=== PATIENT | male | born 1945 | race Caucasian/White ===

== ENCOUNTER 2017-09-22 12:55 | Inpatient (IN) | payer OTHER, MEDICAID ==
[2017-09-22] MEDS: ACETAMINOPHEN 325 MG TAB PO (15:48)
[2017-09-22] MEDS: SOD CHLORIDE 0.9% 1,000 ML IV (17:59)
[2017-09-22] MEDS: morphine 4 MG/ML VIAL IV (18:03)
[2017-09-22 18:39] LABS: ADD MAN DIFF? NO
[2017-09-22 18:42] LABS: BASOPHILS % 0.4 % (0.0-2.0); EOSINOPHILS % 0.4 % (0.0-7.0); HEMATOCRIT 38.7 % (42.0-52.0); HEMOGLOBIN 13.1 g/dl (14.0-18.0); LYMPHOCYTES % 11.2 % (15.0-51.0); MEAN CORPUSCULAR HEMOGLOBIN 31.5 pg (29.0-33.0); MEAN CORPUSCULAR HGB CONC 33.9 g/dl (32.0-37.0); MEAN PLATELET VOLUME 11.4 fl (7.4-10.4); MONOCYTE # 0.9 10^3/ul (0.3-0.9); MONOCYTES % 10.8 % (0.0-11.0); NEUTROPHIL # 6.5 10^3/ul (1.6-7.5); PLATELET COUNT 155 10^3/UL (140-415); RED BLOOD COUNT 4.16 10^6/ul (4.70-6.10); RED CELL DISTRIBUTION WIDTH 13.9 % (11.5-14.5)
[2017-09-22 18:42] LABS: WHITE BLOOD COUNT 8.5 10^3/ul (4.8-10.8)
[2017-09-22 19:07] LABS: INR 1.03; PROTIME 13.6 Sec (11.9-14.9); PT RATIO 1.1
[2017-09-22 19:08] LABS: PARTIAL THROMBOPLASTIN TIME 35.2 Sec (25.0-35.0)
[2017-09-22 19:14] LABS: ANION GAP 17 (8-16); BLOOD UREA NITROGEN 21 mg/dl (7-20); CALCIUM 9.3 mg/dl (8.4-10.2); CARBON DIOXIDE 21 mmol/L (21-31); CHLORIDE 106 mmol/L (97-110); CREATININE 1.02 mg/dl (0.61-1.24); GLUCOSE 99 mg/dl (70-220); POTASSIUM 4.1 mmol/L (3.5-5.1); SODIUM 140 mmol/L (135-144)
[2017-09-22 19:37] LABS: ADD UMIC YES; UR ASCORBIC ACID NEGATIVE (NEGATIVE); UR BILIRUBIN (Dip) NEGATIVE (NEGATIVE); UR BLOOD (Dip) 1+ mg/dL (NEGATIVE); UR CLARITY CLEAR (CLEAR); UR COLOR YELLOW (YELLOW); UR GLUCOSE (Dip) NEGATIVE (NEGATIVE); UR KETONES (Dip) TRACE mg/dL (NEGATIVE); UR LEUKOCYTE ESTERASE (Dip) NEGATIVE Leu/ul (NEGATIVE); UR NITRITE (Dip) NEGATIVE (NEGATIVE); UR RBC 3 /HPF (0-5); UR SPECIFIC GRAVITY (Dip) 1.018 (1.003-1.030); UR TOTAL PROTEIN (Dip) NEGATIVE (NEGATIVE); UR UROBILINOGEN (Dip) NEGATIVE (NEGATIVE); UR WBC 1 /HPF (0-5)
[2017-09-22] MEDS ORDERED: ACETAMINOPHEN 325 MG TAB PO (20:30)
[2017-09-22] MEDS ORDERED: NACL 0.9% 3 ML SYG IV (20:30)
[2017-09-22] MEDS ORDERED: ONDANSETRON 4 MG INJ IV (20:30)
[2017-09-22] MEDS ORDERED: BISACODYL (EC) 5 MG TAB PO (20:30)
[2017-09-22] MEDS ORDERED: DOCUSATE SODIUM 100 MG CAP PO (20:30)
[2017-09-22] MEDS ORDERED: HYDROCODONE/APAP (5/325) TAB PO (20:30)
[2017-09-22] MEDS: clonAZEPAM 0.5 MG TAB PO (21:24)
[2017-09-22] MEDS: LISINOPRIL 20 MG TAB PO (21:25)
[2017-09-22] MEDS: morphine 2 MG INJ IV (21:25)
[2017-09-23] MEDS: SOD CHLORIDE 0.9% 1,000 ML IV ×3 (00:06→18:55)
[2017-09-23] MEDS: HYDROCODONE/APAP (10/325) TAB PO ×2 (02:00→22:01)
[2017-09-23] MEDS: ZOLPIDEM 5 MG TAB PO ×2 (02:00→22:01)
[2017-09-23 07:15] LABS: ADD MAN DIFF? NO
[2017-09-23 07:26] LABS: BASOPHILS % 0.4 % (0.0-2.0); EOSINOPHILS % 0.5 % (0.0-7.0); HEMATOCRIT 36.2 % (42.0-52.0); HEMOGLOBIN 12.5 g/dl (14.0-18.0); LYMPHOCYTES # 1.3 10^3/ul (0.8-2.9); LYMPHOCYTES % 17.5 % (15.0-51.0); MEAN CORPUSCULAR HEMOGLOBIN 31.3 pg (29.0-33.0); MEAN CORPUSCULAR HGB CONC 34.5 g/dl (32.0-37.0); MEAN CORPUSCULAR VOLUME 90.5 fl (82.0-101.0); MEAN PLATELET VOLUME 11.7 fl (7.4-10.4); MONOCYTE # 1.2 10^3/ul (0.3-0.9); MONOCYTES % 16.7 % (0.0-11.0); NEUTROPHIL # 4.7 10^3/ul (1.6-7.5); NEUTROPHILS % 64.6 % (39.0-77.0); PLATELET COUNT 165 10^3/UL (140-415); RED CELL DISTRIBUTION WIDTH 13.2 % (11.5-14.5)
[2017-09-23 07:26] LABS: WHITE BLOOD COUNT 7.3 10^3/ul (4.8-10.8)
[2017-09-23 07:39] LABS: HEMOGLOBIN A1C 5.1 % (0-5.9)
[2017-09-23 07:47] LABS: ALANINE AMINOTRANSFERASE 17 IU/L (13-69); ALBUMIN 3.8 g/dl (3.3-4.9); ALBUMIN/GLOBULIN RATIO 1.15; ALKALINE PHOSPHATASE 68 IU/L (42-121); ANION GAP 19 (8-16); ASPARTATE AMINO TRANSFERASE 16 IU/L (15-46); BILIRUBIN,INDIRECT 0.5 mg/dl (0-1.1); BILIRUBIN,TOTAL 0.5 mg/dl (0.2-1.3); BLOOD UREA NITROGEN 18 mg/dl (7-20); CALCIUM 8.9 mg/dl (8.4-10.2); CARBON DIOXIDE 19 mmol/L (21-31); CHLORIDE 109 mmol/L (97-110); CHOL/HDL RATIO 2.7 RATIO; CHOLESTEROL 138 mg/dl (100-200); CREATININE 0.98 mg/dl (0.61-1.24); GLUCOSE 109 mg/dl (70-220); HDL CHOLESTEROL 51 mg/dl (31-75); LDL CHOLESTEROL,CALCULATED 75 mg/dl; MAGNESIUM 1.5 mg/dl (1.7-2.5); POTASSIUM 3.7 mmol/L (3.5-5.1); SODIUM 143 mmol/L (135-144); TOTAL PROTEIN 7.1 g/dl (6.1-8.1); TRIGLYCERIDES 59 mg/dl (0-149)
[2017-09-23] MEDS: LISINOPRIL 20 MG TAB PO (08:52)
[2017-09-23] MEDS: morphine 2 MG INJ IV (10:23)
[2017-09-24] MEDS: morphine 2 MG INJ IV ×2 (07:51→17:43)
[2017-09-24] MEDS: LISINOPRIL 20 MG TAB PO (07:59)
[2017-09-24] MEDS: SOD CHLORIDE 0.9% 1,000 ML IV ×2 (12:41→18:54)
[2017-09-24] MEDS: METHADONE 5 MG TAB PO ×2 (12:41→22:00)
[2017-09-24 14:14] LABS: HEPATITIS B SURFACE ANTIGEN NEGATIVE (NEGATIVE)
[2017-09-24 14:36] LABS: HEPATITIS C VIRAL ANTIBODY REACTIVE (NEGATIVE)
[2017-09-24] MEDS: TERBINAFINE 250 MG TAB PO (21:59)
[2017-09-25] MEDS: SOD CHLORIDE 0.9% 1,000 ML IV ×2 (03:21→21:56)
[2017-09-25] MEDS: METHADONE 5 MG TAB PO ×3 (05:47→21:56)
[2017-09-25] MEDS: TERBINAFINE 250 MG TAB PO ×2 (09:51→21:56)
[2017-09-25] MEDS: LISINOPRIL 20 MG TAB PO (09:51)
[2017-09-25] MEDS: HYDROCODONE/APAP (10/325) TAB PO (09:51)
[2017-09-25] MEDS: clonAZEPAM 0.5 MG TAB PO (11:10)
[2017-09-25] MEDS: GUAIFENESIN 20 MG/ML 5ML CUP PO (22:21)
[2017-09-26] MEDS: GUAIFENESIN 20 MG/ML 5ML CUP PO ×2 (05:43→13:58)
[2017-09-26] MEDS: METHADONE 5 MG TAB PO ×2 (05:45→13:58)
[2017-09-26] MEDS: TERBINAFINE 250 MG TAB PO (09:20)
[2017-09-26] MEDS: LISINOPRIL 20 MG TAB PO (09:21)
[2017-09-26] MEDS: SOD CHLORIDE 0.9% 1,000 ML IV (13:15)
[2017-09-26] MEDS: morphine 2 MG INJ IV (18:25)
== END 2017-09-26 20:10 | DRG 563 ==
LOC: FTE 12:55 → MS2 18:45
PROC: 2W3MX1Z Immobilization of Left Lower Extremity using Splint (ICD-10-PCS; principal; 2017-09-22)
DX: S82.145A Nondisplaced bicondylar fracture of left tibia, initial encounter for closed fracture (principal); M25.062 Hemarthrosis, left knee; B35.3 Tinea pedis; B18.2 Chronic viral hepatitis C; F11.99 Opioid use, unspecified with unspecified opioid-induced disorder; F41.9 Anxiety disorder, unspecified; F17.290 Nicotine dependence, other tobacco product, uncomplicated; I10 Essential (primary) hypertension; V43.52XA Car driver injured in collision with other type car in traffic accident, initial encounter
CPT/HCPCS: 36415; 71045; 73562; 80048; 80053; 80061; 81001; 83036; 83735; 84443; 85025; 85610; 85730; 86803; 87340; 93005; 96361; 96374; 97116; 97162; 97530; 99285-25